=== PATIENT | female | born 1980 | race Caucasian/White ===

== ENCOUNTER 2017-08-12 03:06 | Emergency (ER) | payer MEDICAID ==
[~2017-08-12] VITALS: Ht 165.1 cm; Wt 50.0 kg
[2017-08-12] MEDS ORDERED: VANCOMYCIN HCL 1 GM/D5% WATER 200 ML IV ONE (03:30)
[2017-08-12] MEDS ORDERED: PIPERACILLIN/TAZO 3.375 GM/D5W 50 ML IV ONE (03:30)
[2017-08-12 04:06] LABS: BASOPHILS % (AUTO) 0.3 % (0.0-2.0); EOSINOPHILS % (AUTO) 1.2 % (1.0-6.0); HEMATOCRIT 30.1 % (36-46); HEMOGLOBIN 10.3 g/dL (12.0-16.0); LYMPHOCYTES # (AUTO) 2.4 K/uL (1.0-4.8); LYMPHOCYTES % (AUTO) 21.4 % (22.0-44.0); MEAN CORPUSCULAR HEMOGLOBIN 32.7 pg (26.0-34.0); MEAN CORPUSCULAR HGB CONC 34.3 G/dL (31.0-37.0); MEAN CORPUSCULAR VOLUME 95 fL (80-100); MONOCYTES # (AUTO) 0.6 K/uL (0.1-1.0); MONOCYTES % (AUTO) 5.5 % (2.0-9.0); NEUTROPHILS % (AUTO) 71.6 % (40.0-70.0); PLATELET COUNT (AUTO) 475 K/uL (150-450); RED BLOOD CELL COUNT(AUTO) 3.16 MIL/uL (4.00-5.20); RED CELL DISTRIBUTION WIDTH 13.6 % (11.5-14.5)
[2017-08-12 04:14] LABS: ANION GAP 6 mmol/L (8-16); CALCIUM, TOTAL 8.6 mg/dL (8.8-10.5); CARBON DIOXIDE 28 mmol/L (22-29); CHLORIDE 103 mmol/L (98-107); CREATININE 0.71 mg/dL (0.60-1.30); GLOMERULAR FILTR. RATE CALC > 60 mL/min (>60); GLUCOSE,RANDOM 122 mg/dL (70-110); POTASSIUM 3.8 mmol/L (3.5-5.1); SODIUM SERUM 137 mmol/L (136-145); UREA NITROGEN, BLOOD 15 mg/dL (7-18)
[2017-08-12 04:20] LABS: ALANINE AMINOTRANSFERASE 28 U/L (12-78); ALBUMIN 3.1 g/dL (3.4-5.0); ALKALINE PHOSPHATASE 99 U/L (46-116); ASPARTATE AMINOTRANSFERASE 19 U/L (15-37); BILIRUBIN,TOTAL 0.2 mg/dL (0.1-1.0); TOTAL PROTEIN, SERUM 8.1 g/dL (6.4-8.2)
[2017-08-12 05:46] LABS: AMPHET/METH SCREEN,URINE POSITIVE (NEGATIVE); BARBITURATE SCREEN, URINE NEGATIVE (NEGATIVE); BENZODIAZEPINES SCREEN,URINE NEGATIVE (NEGATIVE); CANNABINOID SCREEN,URINE POSITIVE (NEGATIVE); COCAINE SCREEN,URINE NEGATIVE (NEGATIVE); METHADONE SCREEN, URINE NEGATIVE (NEGATIVE); OPIATE SCREEN,URINE POSITIVE (NEGATIVE)
[2017-08-12 05:49] LABS: PHENCYCLIDINE SCREEN,URINE NEGATIVE (NEGATIVE)
[2017-08-12 06:40] VITALS: BP 136/68
== END 2017-08-12 06:46 | disposition home or self-care (01) ==
LOC: EMS 03:07
DX: A46 Erysipelas (principal); F15.10 Other stimulant abuse, uncomplicated; F11.10 Opioid abuse, uncomplicated; F17.210 Nicotine dependence, cigarettes, uncomplicated
CPT/HCPCS: 36415; 80053; 80307; 84703; 85025; 87040; 96365; 96366; 99285; 99406; J2543; J3370

== ENCOUNTER 2018-10-07 08:31 | Emergency (ER) | payer MEDICAID ==
[~2018-10-07] VITALS: Ht 157.5 cm; Wt 61.4 kg
[2018-10-07] MEDS ORDERED: METH10 PO (08:39)
[2018-10-07] MEDS ORDERED: IBUPROFEN 600 MG TABLET PO ONE (09:15)
[2018-10-07 09:50] VITALS: BP 136/74
== END 2018-10-07 10:21 | disposition home or self-care (01) ==
LOC: EMS 08:32
DX: K04.7 Periapical abscess without sinus (principal); F11.20 Opioid dependence, uncomplicated; F17.210 Nicotine dependence, cigarettes, uncomplicated; F12.90 Cannabis use, unspecified, uncomplicated
CPT/HCPCS: 99406

== ENCOUNTER 2023-10-01 09:05 | Emergency (ER) | payer MEDICAID ==
[~2023-10-01] VITALS: Ht 152.4 cm; Wt 63.6 kg
[~2023-10-01 09:05] MED LIST: METH10 PO
[2023-10-01] MEDS ORDERED: METH5SOL20 PO (09:09)
[2023-10-01 09:10] VITALS: TEMP 98.2
[2023-10-01] MEDS ORDERED: AMOX250C4 PO (10:17)
[2023-10-01 10:20] VITALS: BP 128/75; PULSE 80; RESP 18
== END 2023-10-01 10:25 | disposition home or self-care (01) ==
LOC: EMS 09:05
DX: K02.9 Dental caries, unspecified (principal); F17.210 Nicotine dependence, cigarettes, uncomplicated; F12.90 Cannabis use, unspecified, uncomplicated; F15.90 Other stimulant use, unspecified, uncomplicated
CPT/HCPCS: 99283; Z7502

== ENCOUNTER 2023-10-19 16:55 | Emergency (ER) | payer MEDICAID ==
[~2023-10-19] VITALS: Ht 162.6 cm; Wt 59.1 kg
[~2023-10-19 16:55] MED LIST changes: +AMOX250C4 PO
[2023-10-19 16:57] VITALS: BP 138/88; PULSE 92; RESP 18; TEMP 98.4
[2023-10-19] MEDS: BACITRACIN 0.9 GM PACKET OINTMENT TP ONE (18:14)
== END 2023-10-19 19:14 | disposition home or self-care (01) ==
LOC: EMS 17:10
DX: S60.441A External constriction of left index finger, initial encounter (principal); F17.210 Nicotine dependence, cigarettes, uncomplicated; F12.90 Cannabis use, unspecified, uncomplicated; F15.90 Other stimulant use, unspecified, uncomplicated; W49.04XA Ring or other jewelry causing external constriction, initial encounter; Y93.89 Activity, other specified; Y92.89 Other specified places as the place of occurrence of the external cause; Y99.8 Other external cause status
CPT/HCPCS: 99284; Z7502; Z7610

== ENCOUNTER 2024-03-14 20:57 | Emergency (ER) | payer MEDICAID ==
[~2024-03-14] VITALS: Ht 165.1 cm; Wt 59.1 kg
[~2024-03-14 20:57] MED LIST changes: -AMOX250C4 PO
[2024-03-14 21:04] VITALS: TEMP 98.1
[2024-03-15] MEDS: LIDOCAINE 1% 10 ML VIAL ID ONE (00:12)
[2024-03-15] MEDS: PERTUSS(ACELL),DIPH,TET/PF 0.5 ML SYRINGE [ADULT] IM. ONE (00:13)
[2024-03-15 02:00] VITALS: BP 117/65; PULSE 84; RESP 16
[2024-03-15] MEDS ORDERED: CEPH-558 PO (02:44)
== END 2024-03-15 03:12 | disposition home or self-care (01) ==
LOC: EMS 20:57
DX: S62.635A Displaced fracture of distal phalanx of left ring finger, initial encounter for closed fracture (principal); F17.210 Nicotine dependence, cigarettes, uncomplicated; F12.90 Cannabis use, unspecified, uncomplicated; F15.10 Other stimulant abuse, uncomplicated; W23.0XXA Caught, crushed, jammed, or pinched between moving objects, initial encounter; Y93.89 Activity, other specified; Y92.89 Other specified places as the place of occurrence of the external cause; Y99.8 Other external cause status
CPT/HCPCS: 99283; 73130; 12001; 90715; 90471; J3490

== ENCOUNTER 2024-04-11 18:28 | Emergency (ER) | payer MEDICAID ==
[~2024-04-11] VITALS: Ht 165.1 cm; Wt 59.1 kg
[~2024-04-11 18:28] MED LIST changes: +CEPH-558 PO
[2024-04-11 18:32] VITALS: BP 147/80; PULSE 102; RESP 18; TEMP 98.7; O2SAT 99
[2024-04-11] MEDS ORDERED: SULF1TAB42 PO (19:57)
== END 2024-04-11 20:28 | disposition home or self-care (01) ==
LOC: EMS 18:28
DX: L02.512 Cutaneous abscess of left hand (principal); F17.210 Nicotine dependence, cigarettes, uncomplicated; F12.90 Cannabis use, unspecified, uncomplicated; F15.90 Other stimulant use, unspecified, uncomplicated
CPT/HCPCS: 99283; Z7502

== ENCOUNTER 2024-09-08 17:12 | Emergency (ER) | payer MEDICAID ==
[~2024-09-08] VITALS: Ht 165.1 cm; Wt 54.5 kg
[~2024-09-08 17:12] MED LIST changes: -CEPH-558 PO; -METH10 PO; +SULF1TAB42 PO
[2024-09-08 17:26] VITALS: BP 113/70; PULSE 124; RESP 18; TEMP 98.6; O2SAT 100
[2024-09-08 18:11] LABS: BASOPHILS % (AUTO) 0.1 % (0.0-2.0); EOSINOPHILS % (AUTO) 0.2 % (1.0-6.0); HEMATOCRIT 37.5 % (36-46); HEMOGLOBIN 12.4 g/dL (12.0-16.0); LYMPHOCYTES # (AUTO) 1.1 K/uL (1.0-4.8); LYMPHOCYTES % (AUTO) 12.4 % (22.0-44.0); MEAN CORPUSCULAR HEMOGLOBIN 31.7 pg (26.0-34.0); MEAN CORPUSCULAR HGB CONC 33.1 G/dL (31.0-37.0); MEAN CORPUSCULAR VOLUME 96 fL (80-100); MONOCYTES # (AUTO) 0.5 K/uL (0.1-1.0); NEUTROPHILS # (AUTO) 7.2 K/uL (1.8-7.7); NEUTROPHILS % (AUTO) 81.3 % (40.0-70.0); PLATELET COUNT (AUTO) 251 K/uL (150-450); RED BLOOD CELL COUNT(AUTO) 3.91 MIL/uL (4.00-5.20); RED CELL DISTRIBUTION WIDTH 13.2 % (11.5-14.5); WHITE BLOOD COUNT (AUTO) 8.8 K/uL (4.5-11.0)
[2024-09-08 18:25] LABS: ANION GAP 4 mmol/L (8-16); CALCIUM, TOTAL 8.7 mg/dL (8.8-10.5); CARBON DIOXIDE 30 mmol/L (22-29); CHLORIDE 105 mmol/L (98-107); CREATININE 0.74 mg/dL (0.60-1.30); GLOMERULAR FILTR. RATE CALC > 60 mL/min (>60); GLUCOSE,RANDOM 117 mg/dL (70-110); POTASSIUM 4.1 mmol/L (3.5-5.1); SODIUM SERUM 139 mmol/L (136-145); UREA NITROGEN, BLOOD 11 mg/dL (7-18)
[2024-09-08] MEDS: LIDOCAINE 1% 10 ML VIAL SQ ONE (19:01)
[2024-09-08] MEDS: CLINDAMYCIN PHOS 150 MG/ML 4 ML VIAL IM ONE (19:22)
[2024-09-08] MEDS ORDERED: CLIN-142 PO (19:38)
[2024-09-08] MEDS: IBUPROFEN 600 MG TABLET PO ONE (19:39)
== END 2024-09-08 19:54 | disposition home or self-care (01) ==
LOC: EMS 17:12
DX: L02.415 Cutaneous abscess of right lower limb (principal); F12.90 Cannabis use, unspecified, uncomplicated; F17.210 Nicotine dependence, cigarettes, uncomplicated
CPT/HCPCS: 99283; 10060; 80048; 85025; 36415; 96372; J3490 ×2

== ENCOUNTER 2025-04-09 10:43 | Emergency (ER) | payer MEDICAID ==
[~2025-04-09] VITALS: Ht 165.1 cm; Wt 48.2 kg
[~2025-04-09 10:43] MED LIST changes: +CLIN-142 PO; -SULF1TAB42 PO
[2025-04-09 10:58] VITALS: BP 145/85; PULSE 104; RESP 18; TEMP 98.1; O2SAT 98
== END 2025-04-09 13:06 | disposition left against medical advice (07) ==
LOC: EMS 10:43
DX: R59.9 Enlarged lymph nodes, unspecified (principal); Z53.21 Procedure and treatment not carried out due to patient leaving prior to being seen by health care provider

== ENCOUNTER 2025-05-04 05:20 | Emergency (ER) | payer MEDICAID ==
[~2025-05-04] VITALS: Ht 165.1 cm; Wt 48.2 kg
[2025-05-04 05:33] VITALS: TEMP 98.2
[2025-05-04 06:28] VITALS: BP 140/97; PULSE 88; RESP 18; O2SAT 100
[2025-05-04] MEDS ORDERED: CEPH-558 PO (06:39)
[2025-05-04] MEDS ORDERED: SULF-261 PO (06:39)
[2025-05-04] MEDS: CEPHALEXIN MONOHYDRATE 500 MG CAPSULE PO ONE (06:47)
[2025-05-04] MEDS: SULFAMETHOX/TRIMETH DS 800-160 MG/TABLET PO ONE (06:47)
== END 2025-05-04 07:01 | disposition home or self-care (01) ==
LOC: EMS 05:20
DX: L73.9 Follicular disorder, unspecified (principal); F12.90 Cannabis use, unspecified, uncomplicated; F15.90 Other stimulant use, unspecified, uncomplicated; F17.210 Nicotine dependence, cigarettes, uncomplicated; Z79.899 Other long term (current) drug therapy; Z87.59 Personal history of other complications of pregnancy, childbirth and the puerperium
CPT/HCPCS: 99283